=== PATIENT | male | born 1945 | race Caucasian/White ===

== ENCOUNTER 2023-06-11 10:48 | Inpatient (IN) ==
[2023-06-11] MEDS ORDERED: 0.9 % SODIUM CHLORIDE 1,000 ML IV ONE (11:24)
[2023-06-11 11:45] LABS: Basophils # (Auto) 0.02 K/mcL (0.00-0.30); Basophils % (Auto) 0.3 % (0.0-2.0); Eosinophils # (Auto) 0.17 K/mcL (0.00-0.70); Eosinophils % (Auto) 2.4 % (0.0-7.0); Hematocrit 37.1 % (40.1-51.0); Hemoglobin 12.4 g/dL (13.7-17.5); Lymphocytes # (Auto) 0.61 K/mcL (1.50-4.80); Lymphocytes % (Auto) 8.6 % (15.5-49.0); Mean Cell Volume 101.9 fL (80.0-100.0); Mean Corpuscular HGB Conc 33.4 g/dL (31.0-36.0); Mean Platelet Volume 10.7 fL (8.8-12.5); Monocytes # (Auto) 0.63 K/mcL (0.10-0.90); Monocytes % (Auto) 8.9 % (1.0-12.0); Neutrophils % (Auto) 79.5 % (38.0-78.0); Platelet Count 425 K/mcL (140-440); RBC 3.64 M/mcL (4.63-6.08); Red Cell Distribution Width 12.8 % (11.5-14.5); WBC 7.1 K/mcL (4.5-11.0)
[2023-06-11 12:04] LABS: ALT/SGPT < 5 U/L (<40); AST/SGOT 12 U/L (<40); Albumin 3.1 gm/dL (3.2-5.2); Albumin/Globulin Ratio 1.2 (1.0-2.3); Alkaline Phosphatase 63 U/L (39-117); Bilirubin,Total < 0.2 mg/dL (0.1-1.0); Blood Urea Nitrogen 43 mg/dL (8-23); Calcium 8.7 mg/dL (8.6-10.4); Carbon Dioxide 16 mmol/L (22-30); Chloride 108 mmol/L (96-108); Globulin 2.6 gm/dL (2.2-3.7); Glomerular Filtration Rate 13; Glucose 68 mg/dL (70-105)
[2023-06-11] MEDS ORDERED: POTASSIUM CHLORIDE 40 MEQ in DEXTROSE 5% IN WATER 500 ML IV ONE (12:07)
[2023-06-11] MEDS ORDERED: FIDAXOMICIN 200 MG TABLET PO ONE (12:16)
[2023-06-11] MEDS ORDERED: VANCOMYCIN 125 MG CAPSULE PO ONE (14:25)
[2023-06-11] MEDS ORDERED: ACETAMINOPHEN 325 MG TABLET PO PRN (16:32)
[2023-06-11 16:45] LABS: Appearance,Urine Clear (Clear); Bacteria,Urine Few /hpf (0); Bilirubin,Urine Negative (Negative); Color,Urine Yellow; Culture Indicated,Urine Yes; Glucose,Urine (UA) Negative (Negative); Ketones,Urine 15 mg/dL (Negative); Leukocyte Esterase,Urine Small /uL (Negative); Nitrate,Urine Positive (Negative); Protein,Urine 100 mg/dL (Negative); Specific Gravity,Urine 1.015 (1.000-1.035); Urine Blood Moderate ery/mcL (Negative); Urine RBC 1 /hpf (0-3); Urine Squamous Epithelial Cell 2 /hpf (0-4); Urine WBC 10 /hpf (0-4); Urobilinogen,Urine Normal
[2023-06-11] MEDS: VANCOMYCIN 125 MG CAPSULE PO SCH ×2 (18:04→20:10)
[2023-06-11] MEDS: LACTATED RINGERS 1,000 ML IV SCH (18:04)
[2023-06-11] MEDS: HEPARIN 5,000 UNIT/ML VIAL SQ SCH (20:10)
[2023-06-11] MEDS: 0.9 % SODIUM CHLORIDE 10 ML SYRINGE IV SCH (20:10)
[2023-06-11] MEDS: SODIUM BICARBONATE 650 MG TABLET PO SCH (20:10)
[2023-06-12] MEDS: LACTATED RINGERS 1,000 ML IV SCH ×3 (02:35→19:44)
[2023-06-12] MEDS: 0.9 % SODIUM CHLORIDE 10 ML SYRINGE IV SCH ×3 (04:47→20:47)
[2023-06-12 06:48] LABS: ABG Methemoglobin 0.5 % (0.4-1.5); Total Hemoglobin 11.2 gm/Dl (13.5-16.5); VBG Base Excess -9 (-2-3); VBG HCO3 16.7 mmol/L (24.0-28.0); VBG Oxygen Saturation 89.1 % (40.0-70.0); VBG PCO2 36.2 mmHg (41.0-51.0); VBG PH 7.28 U (7.32-7.42); VBG Total CO2 17.8 mmol/L (25.0-29.0)
[2023-06-12 07:18] LABS: ALT/SGPT < 5 U/L (<40); AST/SGOT 15 U/L (<40); Albumin 2.7 gm/dL (3.2-5.2); Albumin/Globulin Ratio 1.4 (1.0-2.3); Alkaline Phosphatase 53 U/L (39-117); Bilirubin,Direct < 0.2 mg/dL (0-0.3); Bilirubin,Total < 0.2 mg/dL (0.1-1.0); Blood Urea Nitrogen 42 mg/dL (8-23); Calcium 8.8 mg/dL (8.6-10.4); Carbon Dioxide 18 mmol/L (22-30); Chloride 103 mmol/L (96-108); Glomerular Filtration Rate 13; Glucose 83 mg/dL (70-105); Lactate Dehydrogenase 112 U/L (135-225); Phosphorous 4.8 mg/dL (2.5-4.5); Triglycerides 59 mg/dL (<150); Uric Acid 10.6 mg/dL (2.5-8.0)
[2023-06-12] MEDS: LOPERAMIDE 2 MG CAPSULE PO PRN ×3 (07:25→17:09)
[2023-06-12] MEDS ORDERED: POTASSIUM CHLORIDE 20 MEQ in DEXTROSE 5% IN WATER 250 ML IV ONE (08:14)
[2023-06-12] MEDS ORDERED: POTASSIUM CHLORIDE 20 MEQ TABLET PO ONE (08:14)
[2023-06-12] MEDS: SODIUM BICARBONATE 650 MG TABLET PO SCH ×2 (08:44→20:43)
[2023-06-12] MEDS: HEPARIN 5,000 UNIT/ML VIAL SQ SCH ×2 (08:44→20:51)
[2023-06-12] MEDS ORDERED: MAGNESIUM SULFATE 2 GM/50 ML BAG IV ONE (09:13)
[2023-06-12 10:34] LABS: Basophils # (Auto) 0.04 K/mcL (0.00-0.30); Basophils % (Auto) 0.7 % (0.0-2.0); Eosinophils # (Auto) 0.48 K/mcL (0.00-0.70); Eosinophils % (Auto) 7.8 % (0.0-7.0); Hematocrit 30.7 % (40.1-51.0); Hemoglobin 9.9 g/dL (13.7-17.5); Lymphocytes # (Auto) 0.59 K/mcL (1.50-4.80); Lymphocytes % (Auto) 9.6 % (15.5-49.0); Mean Cell Volume 101.3 fL (80.0-100.0); Mean Corpuscular HGB Conc 32.2 g/dL (31.0-36.0); Mean Platelet Volume 11.8 fL (8.8-12.5); Monocytes # (Auto) 0.63 K/mcL (0.10-0.90); Monocytes % (Auto) 10.3 % (1.0-12.0); Neutrophils % (Auto) 70.8 % (38.0-78.0); Platelet Count 305 K/mcL (140-440); RBC 3.03 M/mcL (4.63-6.08); Red Cell Distribution Width 12.7 % (11.5-14.5); WBC 6.1 K/mcL (4.5-11.0)
[2023-06-12] MEDS: ONDANSETRON 4 MG/2 ML VIAL IV PRN ×2 (14:45→20:42)
[2023-06-12 18:48] LABS: Blood Urea Nitrogen 38 mg/dL (8-23); Calcium 8.7 mg/dL (8.6-10.4); Carbon Dioxide 19 mmol/L (22-30); Chloride 102 mmol/L (96-108); Glomerular Filtration Rate 15; Glucose 137 mg/dL (70-105)
[2023-06-12] MEDS ORDERED: POTASSIUM CHLORIDE 40 MEQ in DEXTROSE 5% IN WATER 500 ML IV SCH (18:50)
[2023-06-12] MEDS ORDERED: POTASSIUM CHLORIDE 20 MEQ TABLET PO SCH (18:50)
[2023-06-12] MEDS ORDERED: POTASSIUM CHLORIDE 20 MEQ/10 ML VIAL IV ONE (20:36)
[2023-06-13] MEDS: LACTATED RINGERS 1,000 ML IV SCH (03:40)
[2023-06-13 06:26] LABS: Basophils # (Auto) 0.02 K/mcL (0.00-0.30); Basophils % (Auto) 0.3 % (0.0-2.0); Eosinophils # (Auto) 0.43 K/mcL (0.00-0.70); Eosinophils % (Auto) 5.7 % (0.0-7.0); Hematocrit 28.6 % (40.1-51.0); Hemoglobin 9.5 g/dL (13.7-17.5); Lymphocytes # (Auto) 0.48 K/mcL (1.50-4.80); Lymphocytes % (Auto) 6.3 % (15.5-49.0); Mean Cell Volume 100.7 fL (80.0-100.0); Mean Corpuscular HGB Conc 33.2 g/dL (31.0-36.0); Mean Platelet Volume 10.5 fL (8.8-12.5); Monocytes # (Auto) 0.86 K/mcL (0.10-0.90); Monocytes % (Auto) 11.3 % (1.0-12.0); Neutrophils % (Auto) 76.1 % (38.0-78.0); Platelet Count 379 K/mcL (140-440); RBC 2.84 M/mcL (4.63-6.08); Red Cell Distribution Width 12.5 % (11.5-14.5); WBC 7.6 K/mcL (4.5-11.0)
[2023-06-13 08:34] LABS: ALT/SGPT 7 U/L (<40); AST/SGOT 16 U/L (<40); Albumin 2.5 gm/dL (3.2-5.2); Albumin/Globulin Ratio 1.2 (1.0-2.3); Alkaline Phosphatase 51 U/L (39-117); Bilirubin,Direct < 0.2 mg/dL (0-0.3); Bilirubin,Total 0.2 mg/dL (0.1-1.0); Blood Urea Nitrogen 29 mg/dL (8-23); Calcium 8.4 mg/dL (8.6-10.4); Carbon Dioxide 19 mmol/L (22-30); Chloride 105 mmol/L (96-108); Globulin 2.1 gm/dL (2.2-3.7); Glomerular Filtration Rate 18; Glucose 80 mg/dL (70-105); Lactate Dehydrogenase 140 U/L (135-225); Phosphorous 3.6 mg/dL (2.5-4.5); Triglycerides 68 mg/dL (<150); Uric Acid 9.8 mg/dL (2.5-8.0)
[2023-06-13] MEDS: HEPARIN 5,000 UNIT/ML VIAL SQ SCH ×2 (08:44→21:04)
[2023-06-13] MEDS: SODIUM BICARBONATE 650 MG TABLET PO SCH ×2 (08:44→21:04)
[2023-06-13] MEDS: 0.9 % SODIUM CHLORIDE 10 ML SYRINGE IV SCH ×3 (08:44→21:04)
[2023-06-13 14:44] LABS: Appearance,Urine CLOUDY (Clear); Bacteria,Urine MOD /hpf (0); Bilirubin,Urine Negative (Negative); Color,Urine YELLOW; Culture Indicated,Urine Yes; Glucose,Urine (UA) Negative (Negative); Ketones,Urine Negative (Negative); Leukocyte Esterase,Urine 500 /uL (Negative); Mucus,Urine FEW /hpf; Nitrate,Urine POS (Negative); Protein,Urine 30 mg/dL (Negative); Specific Gravity,Urine 1.006 (1.000-1.035); Urine RBC 11 /hpf (0-3); Urine Squamous Epithelial Cell 1 /hpf (0-4); Urine WBC > 182 /hpf (0-4); Urobilinogen,Urine Negative
[2023-06-13] MEDS: CHOLESTYRAMINE/ASPARTAME 4 GM POWD.PACK PO SCH ×2 (15:25→21:04)
[2023-06-13] MEDS: DIPHENOXYLATE HCL/ATROPINE 1 TABLET PO PRN (19:10)
[2023-06-13] MEDS: ONDANSETRON 4 MG/2 ML VIAL IV PRN (21:03)
[2023-06-14] MEDS: 0.9 % SODIUM CHLORIDE 10 ML SYRINGE IV SCH ×3 (06:29→20:42)
[2023-06-14 06:44] LABS: Basophils # (Auto) 0.03 K/mcL (0.00-0.30); Basophils % (Auto) 0.5 % (0.0-2.0); Eosinophils % (Auto) 4.7 % (0.0-7.0); Hematocrit 29.6 % (40.1-51.0); Hemoglobin 9.7 g/dL (13.7-17.5); Lymphocytes # (Auto) 0.55 K/mcL (1.50-4.80); Lymphocytes % (Auto) 8.6 % (15.5-49.0); Mean Corpuscular HGB Conc 32.8 g/dL (31.0-36.0); Mean Platelet Volume 10.6 fL (8.8-12.5); Monocytes # (Auto) 0.69 K/mcL (0.10-0.90); Monocytes % (Auto) 10.8 % (1.0-12.0); Neutrophils % (Auto) 74.9 % (38.0-78.0); Platelet Count 401 K/mcL (140-440); RBC 2.93 M/mcL (4.63-6.08); Red Cell Distribution Width 12.7 % (11.5-14.5); WBC 6.4 K/mcL (4.5-11.0)
[2023-06-14 07:02] LABS: ALT/SGPT 8 U/L (<40); AST/SGOT 19 U/L (<40); Albumin 2.8 gm/dL (3.2-5.2); Albumin/Globulin Ratio 1.1 (1.0-2.3); Alkaline Phosphatase 58 U/L (39-117); Bilirubin,Direct < 0.2 mg/dL (0-0.3); Bilirubin,Total < 0.2 mg/dL (0.1-1.0); Blood Urea Nitrogen 30 mg/dL (8-23); Calcium 8.9 mg/dL (8.6-10.4); Carbon Dioxide 19 mmol/L (22-30); Chloride 106 mmol/L (96-108); Globulin 2.5 gm/dL (2.2-3.7); Glomerular Filtration Rate 18; Glucose 80 mg/dL (70-105); Lactate Dehydrogenase 129 U/L (135-225); Phosphorous 4.2 mg/dL (2.5-4.5); Triglycerides 59 mg/dL (<150); Uric Acid 9.9 mg/dL (2.5-8.0)
[2023-06-14] MEDS ORDERED: POTASSIUM CHLORIDE 20 MEQ TABLET PO ONE (07:18)
[2023-06-14] MEDS ORDERED: FOSFOMYCIN TROMETHAMINE 3 GM PACKET PO ONE (07:32)
[2023-06-14] MEDS: CHOLESTYRAMINE/ASPARTAME 4 GM POWD.PACK PO SCH ×2 (07:35→20:42)
[2023-06-14] MEDS: SODIUM BICARBONATE 650 MG TABLET PO SCH ×3 (09:03→20:42)
[2023-06-14] MEDS: HEPARIN 5,000 UNIT/ML VIAL SQ SCH ×3 (09:03→20:42)
[2023-06-14] MEDS: DIPHENOXYLATE HCL/ATROPINE 1 TABLET PO PRN (09:03)
[2023-06-15] MEDS: 0.9 % SODIUM CHLORIDE 10 ML SYRINGE IV SCH ×3 (06:56→21:31)
[2023-06-15 06:59] LABS: ALT/SGPT 7 U/L (<40); AST/SGOT 17 U/L (<40); Albumin 2.6 gm/dL (3.2-5.2); Albumin/Globulin Ratio 1.2 (1.0-2.3); Alkaline Phosphatase 50 U/L (39-117); Bilirubin,Direct < 0.2 mg/dL (0-0.3); Bilirubin,Total < 0.2 mg/dL (0.1-1.0); Blood Urea Nitrogen 30 mg/dL (8-23); Calcium 8.8 mg/dL (8.6-10.4); Carbon Dioxide 16 mmol/L (22-30); Chloride 108 mmol/L (96-108); Globulin 2.2 gm/dL (2.2-3.7); Glomerular Filtration Rate 18; Glucose 84 mg/dL (70-105); Lactate Dehydrogenase 157 U/L (135-225); Phosphorous 4.4 mg/dL (2.5-4.5); Triglycerides 59 mg/dL (<150); Uric Acid 10.3 mg/dL (2.5-8.0)
[2023-06-15] MEDS: DIPHENOXYLATE HCL/ATROPINE 1 TABLET PO PRN (07:17)
[2023-06-15] MEDS: CHOLESTYRAMINE/ASPARTAME 4 GM POWD.PACK PO SCH ×2 (07:17→21:37)
[2023-06-15] MEDS ORDERED: LOPERAMIDE 2 MG CAPSULE PO ONE (08:29)
[2023-06-15] MEDS ORDERED: LACTATED RINGERS 1,000 ML IV SCH (08:30)
[2023-06-15] MEDS: HEPARIN 5,000 UNIT/ML VIAL SQ SCH (09:43)
[2023-06-15] MEDS: SODIUM BICARBONATE 650 MG TABLET PO SCH ×3 (09:49→21:36)
[2023-06-15] MEDS: ONDANSETRON 4 MG/2 ML VIAL IV PRN (14:50)
[2023-06-15] MEDS: BUDESONIDE 3 MG CAP.XL.24H PO SCH (21:33)
[2023-06-15] MEDS: BISMUTH SUBSALICYLATE 15 ML ORAL.SUSP PO SCH ×2 (21:34)
[2023-06-15] MEDS: DICYCLOMINE 20 MG TABLET PO SCH (21:36)
[2023-06-15] MEDS: oxyCODONE IR 5 MG TABLET PO PRN (23:59)
[2023-06-16] MEDS: BISMUTH SUBSALICYLATE 15 ML ORAL.SUSP PO SCH ×5 (03:58→20:35)
[2023-06-16] MEDS: 0.9 % SODIUM CHLORIDE 10 ML SYRINGE IV SCH ×3 (05:25→20:37)
[2023-06-16 06:59] LABS: Basophils # (Auto) 0.01 K/mcL (0.00-0.30); Basophils % (Auto) 0.2 % (0.0-2.0); Eosinophils # (Auto) 0.14 K/mcL (0.00-0.70); Hematocrit 27.4 % (40.1-51.0); Lymphocytes # (Auto) 0.37 K/mcL (1.50-4.80); Mean Cell Volume 102.6 fL (80.0-100.0); Mean Corpuscular HGB Conc 32.8 g/dL (31.0-36.0); Mean Platelet Volume 10.8 fL (8.8-12.5); Monocytes # (Auto) 0.51 K/mcL (0.10-0.90); Neutrophils % (Auto) 77.4 % (38.0-78.0); Platelet Count 372 K/mcL (140-440); RBC 2.67 M/mcL (4.63-6.08); Red Cell Distribution Width 12.8 % (11.5-14.5); WBC 4.7 K/mcL (4.5-11.0)
[2023-06-16 07:13] LABS: ALT/SGPT 8 U/L (<40); AST/SGOT 17 U/L (<40); Albumin 2.5 gm/dL (3.2-5.2); Albumin/Globulin Ratio 1.3 (1.0-2.3); Alkaline Phosphatase 46 U/L (39-117); Bilirubin,Direct < 0.2 mg/dL (0-0.3); Bilirubin,Total < 0.2 mg/dL (0.1-1.0); Blood Urea Nitrogen 28 mg/dL (8-23); Calcium 8.6 mg/dL (8.6-10.4); Carbon Dioxide 17 mmol/L (22-30); Chloride 108 mmol/L (96-108); Glomerular Filtration Rate 18; Glucose 96 mg/dL (70-105); Lactate Dehydrogenase 137 U/L (135-225); Phosphorous 4.3 mg/dL (2.5-4.5); Triglycerides 44 mg/dL (<150); Uric Acid 9.9 mg/dL (2.5-8.0)
[2023-06-16] MEDS: CHOLESTYRAMINE/ASPARTAME 4 GM POWD.PACK PO SCH ×2 (07:19→20:35)
[2023-06-16] MEDS: PANTOPRAZOLE 40 MG TABLET PO SCH (08:48)
[2023-06-16] MEDS: SODIUM BICARBONATE 650 MG TABLET PO SCH ×3 (08:48→20:37)
[2023-06-16] MEDS: DICYCLOMINE 20 MG TABLET PO SCH ×3 (08:48→20:36)
[2023-06-16] MEDS ORDERED: DEXTROSE 5%-1/2NS W/10MEQ KCL 1,000 ML IV SCH (11:15)
[2023-06-16] MEDS: HEPARIN 5,000 UNIT/ML VIAL SQ SCH ×2 (11:30→20:38)
[2023-06-16] MEDS: BUDESONIDE 3 MG CAP.XL.24H PO SCH (11:36)
[2023-06-16] MEDS ORDERED: methylPREDNISolone SOD SUCC 125 MG/2 ML VIAL IV ONE (22:11)
[2023-06-16] MEDS ORDERED: CHOLESTYRAMINE/ASPARTAME 4 GM POWD.PACK PO ONE (22:11)
[2023-06-16] MEDS ORDERED: methylPREDNISolone SOD SUCC 125 MG/2 ML VIAL ONE (22:57)
[2023-06-16] MEDS: oxyCODONE IR 5 MG TABLET PO PRN (23:44)
[2023-06-17] MEDS: BISMUTH SUBSALICYLATE 15 ML ORAL.SUSP PO SCH ×6 (01:59→20:52)
[2023-06-17] MEDS: 0.9 % SODIUM CHLORIDE 10 ML SYRINGE IV SCH ×3 (04:38→20:52)
[2023-06-17 07:20] LABS: Hemoglobin 8.9 g/dL (13.7-17.5)
[2023-06-17 07:22] LABS: ALT/SGPT 10 U/L (<40); AST/SGOT 15 U/L (<40); Albumin 2.5 gm/dL (3.2-5.2); Albumin/Globulin Ratio 1.2 (1.0-2.3); Alkaline Phosphatase 45 U/L (39-117); Bilirubin,Direct < 0.2 mg/dL (0-0.3); Bilirubin,Total < 0.2 mg/dL (0.1-1.0); Blood Urea Nitrogen 27 mg/dL (8-23); Calcium 8.6 mg/dL (8.6-10.4); Carbon Dioxide 17 mmol/L (22-30); Chloride 107 mmol/L (96-108); Globulin 2.1 gm/dL (2.2-3.7); Glomerular Filtration Rate 18; Glucose 135 mg/dL (70-105); Lactate Dehydrogenase 165 U/L (135-225); Phosphorous 4.5 mg/dL (2.5-4.5); Triglycerides 61 mg/dL (<150); Uric Acid 9.6 mg/dL (2.5-8.0)
[2023-06-17] MEDS: PANTOPRAZOLE 40 MG TABLET PO SCH (07:37)
[2023-06-17] MEDS: CHOLESTYRAMINE/ASPARTAME 4 GM POWD.PACK PO SCH ×2 (07:51→20:51)
[2023-06-17] MEDS: SODIUM BICARBONATE 650 MG TABLET PO SCH ×3 (09:42→20:52)
[2023-06-17] MEDS: methylPREDNISolone SOD SUCC 40 MG/ML VIAL IV SCH ×2 (09:43→20:51)
[2023-06-17] MEDS: HEPARIN 5,000 UNIT/ML VIAL SQ SCH ×2 (09:43→20:51)
[2023-06-17] MEDS: DICYCLOMINE 20 MG TABLET PO SCH ×4 (09:43→20:51)
[2023-06-17] MEDS: BUDESONIDE 3 MG CAP.XL.24H PO SCH (09:43)
[2023-06-17] MEDS ORDERED: ALBUMIN HUMAN 12.5 GM/50 ML VIAL IV ONE (10:21)
[2023-06-18] MEDS: BISMUTH SUBSALICYLATE 15 ML ORAL.SUSP PO SCH ×6 (01:05→21:10)
[2023-06-18] MEDS: 0.9 % SODIUM CHLORIDE 10 ML SYRINGE IV SCH ×3 (05:17→21:03)
[2023-06-18 06:09] LABS: Hematocrit 26.9 % (40.1-51.0); Hemoglobin 8.8 g/dL (13.7-17.5)
[2023-06-18 07:02] LABS: ALT/SGPT 5 U/L (<40); AST/SGOT 9 U/L (<40); Albumin 2.7 gm/dL (3.2-5.2); Albumin/Globulin Ratio 1.4 (1.0-2.3); Alkaline Phosphatase 45 U/L (39-117); Bilirubin,Direct < 0.2 mg/dL (0-0.3); Bilirubin,Total < 0.2 mg/dL (0.1-1.0); Blood Urea Nitrogen 28 mg/dL (8-23); Calcium 8.9 mg/dL (8.6-10.4); Carbon Dioxide 18 mmol/L (22-30); Chloride 106 mmol/L (96-108); Globulin 1.9 gm/dL (2.2-3.7); Glomerular Filtration Rate 20; Glucose 120 mg/dL (70-105); Lactate Dehydrogenase 125 U/L (135-225); Phosphorous 4.8 mg/dL (2.5-4.5); Triglycerides 70 mg/dL (<150); Uric Acid 9.7 mg/dL (2.5-8.0)
[2023-06-18] MEDS: SODIUM BICARBONATE 650 MG TABLET PO SCH ×3 (08:08→21:01)
[2023-06-18] MEDS: BUDESONIDE 3 MG CAP.XL.24H PO SCH (08:08)
[2023-06-18] MEDS: DICYCLOMINE 20 MG TABLET PO SCH ×4 (08:09→21:02)
[2023-06-18] MEDS: PANTOPRAZOLE 40 MG TABLET PO SCH (08:09)
[2023-06-18] MEDS: CHOLESTYRAMINE/ASPARTAME 4 GM POWD.PACK PO SCH ×2 (08:09→21:01)
[2023-06-18] MEDS ORDERED: SODIUM BICARBONATE 50 MEQ/50 ML VIAL IV ONE (08:10)
[2023-06-18] MEDS ORDERED: methylPREDNISolone SOD SUCC 40 MG/ML VIAL IV ONE (08:11)
[2023-06-18] MEDS ORDERED: ALBUMIN HUMAN 12.5 GM/50 ML VIAL IV ONE (08:59)
[2023-06-19] MEDS: oxyCODONE IR 5 MG TABLET PO PRN (00:03)
[2023-06-19] MEDS: BISMUTH SUBSALICYLATE 15 ML ORAL.SUSP PO SCH ×4 (00:03→12:19)
[2023-06-19] MEDS: 0.9 % SODIUM CHLORIDE 10 ML SYRINGE IV SCH (05:28)
[2023-06-19] MEDS: CHOLESTYRAMINE/ASPARTAME 4 GM POWD.PACK PO SCH (06:58)
[2023-06-19] MEDS: PANTOPRAZOLE 40 MG TABLET PO SCH (06:58)
[2023-06-19] MEDS: DICYCLOMINE 20 MG TABLET PO SCH ×2 (08:32→12:19)
[2023-06-19] MEDS: BUDESONIDE 3 MG CAP.XL.24H PO SCH (08:32)
[2023-06-19] MEDS: SODIUM BICARBONATE 650 MG TABLET PO SCH (08:32)
[2023-06-19 08:59] LABS: Blood Urea Nitrogen 30 mg/dL (8-23); Calcium 9.1 mg/dL (8.6-10.4); Carbon Dioxide 18 mmol/L (22-30); Chloride 106 mmol/L (96-108); Glomerular Filtration Rate 22; Glucose 88 mg/dL (70-105)
== END 2023-06-19 14:20 | disposition home or self-care (01) | DRG 392 ==
LOC: ED 10:48 → MEDSUR 16:26
PROVIDERS: ADMIT Internal Medicine; ATTEND Internal Medicine